=== PATIENT | female | born 1950 | race Caucasian/White ===

== ENCOUNTER → 2017-01-12 | Outpatient (CLI) | payer BC ==
--- NOTE | 2017-01-12 12:47 | MAMMOGRAPHY REPORT ---
BILATERAL DIGITAL SCREENING MAMMOGRAM WITH CAD: 01/12/2017 CLINICAL HISTORY: Routine screening. Patient has no complaints. TECHNIQUE: Current study was also evaluated with a Computer Aided Detection (CAD) system. Bilatera l CC and MLO views were obtained. COMPARISON: Comparison is made to exams dated: 01/08/2015 mammogram, 01/09/2016 mammogram, 11/28/2013 ma mmogram, 11/17/2012 mammogram, 11/11/2011 mammogram, and 11/22/2012 mammogram - [facility] nt. BREAST COMPOSITION: There are scattered areas of fibroglandular density in both breasts. FINDINGS: No suspicious masses, calcifications, or areas of architectural distortion are noted in e ither breast. There has been no significant interval change compared to prior exams. Scattered bilat eral benign-appearing calcifications are not significantly changed. Oval 9 mm benign-appearing mass in the right lateral subareolar breast is stable. IMPRESSION: ACR BI-RADS CATEGORY 2: BENIGN There is no mammographic evidence of malignancy. A 1 year screening mammogram is recommended. The p atient will receive written notification of the results. Approximately 10% of breast cancers are not detected with mammography. A negative mammographic repor t should not delay biopsy if a clinically suggestive mass is present. Yuliana Gold M.D. ah/:01/12/2017 07:50:34 [employer] Laborer: Mickie REY(R)(M), [facility] letter sent: Normal 1/2 BI-RADS Code: ACR BI-RADS Category 2: Benign
== END | disposition home or self-care (01) ==
LOC: C.MAMM 07:26
PROVIDERS: ATTEND Family Medicine
DX: Z12.31 Encounter for screening mammogram for malignant neoplasm of breast (principal)

== ENCOUNTER → 2018-01-18 | Outpatient (CLI) | payer BC ==
--- NOTE | 2018-01-18 15:12 | MAMMOGRAPHY REPORT ---
BILATERAL DIGITAL SCREENING MAMMOGRAM TOMOSYNTHESIS WITH CAD: 01/18/2018 CLINICAL HISTORY: Routine screening. Patient has no complaints. TECHNIQUE: Bilateral breast tomosynthesis in addition to standard 2D mammography was performed. Curre nt study was also evaluated with a Computer Aided Detection (CAD) system. COMPARISON: Comparison is made to exams dated: 01/12/2017 mammogram, 01/09/2016 mammogram, 01/08/2015 kade mogram, 11/28/2013 mammogram, 11/22/2012 mammogram, and 11/17/2012 mammogram - [facility]. BREAST COMPOSITION: The tissue of both breasts is almost entirely fatty. FINDINGS: There is a 6 mm focal asymmetry in the upper outer anterior right breast, for which additi onal spot compression tomosynthesis views and possible ultrasound are recommended, although this coul d represent normal overlapping tissue. There are scattered benign rim calcifications in the breasts. No other suspicious mass, architectural distortion or cluster of microcalcifications is seen. IMPRESSION: ACR BI-RADS CATEGORY 0: INCOMPLETE EVALUATION: NEED ADDITIONAL IMAGING EVALUATION The 6 mm focal asymmetry in the upper outer anterior right breast needs additional evaluation. The patient will be called to schedule an appointment. Approximately 10% of breast cancers are not detected with mammography. A negative mammographic report should not delay biopsy if a clinically suggestive mass is present. Christine Juarez M.D. ay/:01/18/2018 08:05:22 Vmware Architect: Mickie REY(Flip)(Annie), [facility] letter sent: Addl Imaging 0 BI-RADS Code: ACR BI-RADS Category 0: Incomplete Evaluation: Need Additional Imaging Evaluation
== END | disposition home or self-care (01) ==
LOC: C.MAMM 07:17
PROVIDERS: ATTEND Family Medicine
DX: Z12.31 Encounter for screening mammogram for malignant neoplasm of breast (principal); N64.9 Disorder of breast, unspecified

== ENCOUNTER → 2018-01-26 | Outpatient (CLI) | payer BC ==
--- NOTE | 2018-01-26 14:44 | MAMMOGRAPHY REPORT ---
UNILATERAL RIGHT DIGITAL DIAGNOSTIC MAMMOGRAM TOMOSYNTHESIS AND TARGETED RIGHT ULTRASOUND: 01/26/2018 CLINICAL HISTORY: Callback from screening mammogram for right breast asymmetry. TECHNIQUE: Breast tomosynthesis in addition to standard 2D mammography was performed. Spot compress ion right CC and MLO 2D and tomosynthesis images were obtained. COMPARISON: Comparison is made to exams dated: 01/18/2018 mammogram, 01/12/2017 mammogram, 01/09/2016 ma mmogram, 01/08/2015 mammogram, 11/28/2013 mammogram, and 11/22/2012 mammogram - [facility]. BREAST COMPOSITION: There are scattered areas of fibroglandular density in the right breast. FINDINGS: Spot compression views demonstrate an oval circumscribed 9 mm mass within the right lateral anterior breast at approximately 8 to 9:00, for which ultrasound was performed. A small circumscrib ed 5 mm oval benign-appearing mass is also seen within the right lateral anterior breast at approxima tely 8:00. Targeted ultrasound was performed of the right 8 to 9:00 breast in the region of the mammographic mas s. In the right breast at 8:00, 3 cm from the nipple, there is a lobulated hypoechoic solid-appearin g 7 x 7 x 10 mm mass which is contiguous with a milk duct and is therefore likely intraductal. This corresponds with the mammographic mass and is indeterminant, therefore, ultrasound-guided biopsy is r ecommended for further evaluation. This may represent a papilloma. The patient denies any nipple di scharge. The remainder of the region demonstrates no suspicious masses or other suspicious sonograph ic abnormalities. The smaller benign-appearing circumscribed mass seen mammographically is therefore benign and likely corresponds with a normal milk duct. IMPRESSION: ACR BI-RADS CATEGORY 4: SUSPICIOUS, TARGETED ULTRASOUND ACR BI-RADS CATEGORY 4: SUSPICIO US Hypoechoic solid 10 mm mass in the right 8:00 breast on ultrasound, which corresponds with the mammog raphic finding. The mass appears intraductal and therefore may represent a papilloma. The mass is i ndeterminate and ultrasound-guided core needle biopsy is recommended for further evaluation. A phone call was made to the physician's office to confirm faxed results were received. The patient has been verbally notified of the results. She tentatively scheduled the biopsy before leaving the [facility]. Approximately 10% of breast cancers are not detected with mammography. A negative mammographic report should not delay biopsy if a clinically suggestive mass is present. Yuliana Gold M.D. ah/:01/26/2018 11:57:06 Service Center Assistant: Chrissy HIGGINS (R)), [facility] letter sent: Abnormal 4/5 BI-RADS Code: ACR BI-RADS Category 4: Suspicious Ultrasound BI-RADS: ACR BI-RADS Category 4: Suspici ous
== END | disposition home or self-care (01) ==
LOC: C.MAMM 10:54
PROVIDERS: ATTEND Family Medicine
DX: N64.9 Disorder of breast, unspecified (principal)

== ENCOUNTER → 2018-02-06 | Outpatient (CLI) | payer BC ==
--- NOTE | 2018-02-06 11:08 | Discharge Instructions ---
Discharge Instructions Procedure Procedure Date: February 06, 2018. Reason for visit: Right Mass. Discharge Discharge Date: February 06, 2018. Discharge Diagnosis: post right breast ultrasound guided core biopsy Instructions Activity Recommendations: Additional Limitations (see below) Return to School/Work: no limitations Recommended Home Diet: No Limitations Provider Instructions: ACTIVITY RECOMMENDATIONS: * No lifting, pushing, pulling or exercising the affected side for three days. RETURN TO SCHOOL/WORK: * You may return to work/school after the procedure, but do not perform any strenuous activities for 24 to 48 hours. MEDICATIONS: * Tylenol (two 325 mg) every four to six hours if needed for mild pain (if not allergic to Tylenol). DIET: * Resume previous diet. SPECIAL CARE INSTRUCTIONS: * Keep biopsy site dry for 24 hours. May shower after 24 hours, but do not soak (bathe) incision. * May remove Tegaderm (plastic patch) tomorrow AFTER showering. * Leave the steri-strips on for one week. Allow the steri-strips to fall off by themselves. If not off after one week, you may remove them. You may place a Bandaid crosswise over the strips, if desired. * Apply ice 10 minutes on and 10 minutes off as needed. * Wear a bra at bedtime to sleep more comfortably for 2-3 days. * Your referring physician should have the results after approximately 5 to 7 business days. * Call for unusual bleeding, fever, drainage, etc or if you have any questions call [phone] during normal business hours or after hours call Dr Juarez, . FOLLOW UP VISIT: Follow-up with Referring Physician as scheduled. Gayathri Saeed Recommendations: Call your doctor if: * Temperature above 101 degrees * Pain not relieved by pain medicine ordered * There is increased drainage or redness from any incision * You have any unanswered questions or concerns. Your Doctors Instructions noted above were prepared by provider Christine Juarez. Patient Signature Section: Patient Instructions Signature Page Acacia Ingram Patient (or Guardian) Signature/Date: I have read and understand the instructions given to me by my caregivers. Caregiver/RN/Doctor Signature/Date: The above-named patient and/or guardian has received patient instructions on this date. + Original Patient Signature Page (only) stays with chart. Please make copy for patient.
--- NOTE | 2018-02-06 14:32 | MAMMOGRAPHY REPORT ---
ULTRASOUND GUIDED BIOPSY RIGHT BREAST: 02/06/2018 CLINICAL HISTORY: Hypoechoic 10 mm mass contiguous with a duct measuring 18 mm in conglomerate in the 8:00 right breast, thought to correspond with a mammographic mass. Patient presents for ultrasound- guided core biopsy as this could represent an intraductal mass. COMPARISON: Comparison is made to exams dated: 01/26/2018 ultrasound, 01/26/2018 mammogram, 01/18/2018 mammogram, 01/12/2017 mammogram, 01/09/2016 mammogram, and 01/08/2015 mammogram - [facility] nter. PATIENT CONSENT: The procedure, risks and benefits were discussed with the patient and informed conse nt was obtained both verbally and in writing. Specific risks to this procedure include: bleeding, in fection, puncture of adjacent structure, nontarget biopsy, sampling error, pain, metal allergy and me dication reaction. PROCEDURE DESCRIPTION: A time out was performed and the right breast was agreed as the site of biopsy . The skin was prepped and draped in the usual sterile fashion. The 10 mm hypoechoic intraductal mass in the 8:00 right breast was chosen as the target for biopsy. Subcutaneous and intraparenchymal 1% b uffered lidocaine, with and without epinephrine, was administered as local anesthesia. A skin incisio n was made. Through the incision, 4 samples were taken with a 14 gauge Achieve biopsy device. A ribb on shaped metallic marker was placed at the biopsy site. Hemostasis was achieved after manual mike meka. The patient tolerated the procedure well and there was no immediate complication. The samples were sent to the pathology department in an appropriately labeled container. Postprocedure right CC and ML tomosynthesis images were obtained. A new ribbon-shaped biopsy marker clip is seen in the 8:00 anterior right breast, aligning with the mammographic focal asymmetry in que stion. No significant postbiopsy hematoma. IMPRESSION: ULTRASOUND GUIDED BIOPSY Status post ultrasound-guided core biopsy of a possible intraductal 10 mm mass in the 8:[address], with biopsy marker clip placed at the site. The patient will receive notification of the biopsy results from her referring physician. Christine Juarez M.D. ay/:02/06/2018 11:32:28 Detacker: Mickie MEIER)(Annie), [facility]
--- NOTE | 2018-02-06 14:35 | MAMMOGRAPHY REPORT ---
UNILATERAL RIGHT DIGITAL DIAGNOSTIC MAMMOGRAM TOMOSYNTHESIS: 02/06/2018 CLINICAL HISTORY: Status post ultrasound-guided core biopsy of an indeterminate 19 mm hypoechoic poss ible intraductal mass in the 8:00 right breast. Please refer to the report from right breast ultrasound-guided core biopsy performed at the same time for full detail. IMPRESSION: POST PROCEDURE IMAGING FOR MARKER PLACEMENT Please refer to the report from right breast ultrasound-guided core biopsy performed at the same time for full detail. Approximately 10% of breast cancers are not detected with mammography. A negative mammographic report should not delay biopsy if a clinically suggestive mass is present. Christine Juarez M.D. ay/:02/06/2018 11:09:19 Science Interpreter: Mickie REY(R)(M), [facility] BI-RADS Code: Post Procedure Imaging For Marker Placement
== END | disposition home or self-care (01) ==
LOC: C.MAMM 10:30
PROVIDERS: ATTEND Family Medicine
DX: N63.10 Unspecified lump in the right breast, unspecified quadrant (principal)